=== PATIENT | female | born 1975 | race Hispanic/Latino ===

== ENCOUNTER 2016-12-21 22:30 | Emergency (ER) | payer SELFPAY ==
[2016-12-21] MEDS ORDERED: TORAdol 30 mg Injection IV ONE (22:52)
[2016-12-21] MEDS ORDERED: TORAdol 30 mg Injection ONE (22:57)
--- NOTE | 2016-12-21 22:57 | ERPHSYRPT ---
- History of Present Illness Time Seen by Provider: 12/21/16 22:54 Historian: patient Exam Limitations: no limitations Physician History: 41 y/o female comes to the ER with complaints of mid abdominal pain for the past 3 days. Pt describes the pain as sharp, constant, 6/10 and not relieved by tylenol or advil. Pt says she has been on her period for the past 10 days. Pt denies any fever, chills, nausea, vomiting, diarrhea, constipation or urinary symptoms. Timing/Duration: day(s) (3) Activities at Onset: none Quality: sharpness Abdominal Pain Onset Location: periumbilical Pain Radiation: no radiation Severity of Pain-Max: moderate Severity of Pain-Current: moderate Modifying Factors: Improves With: nothing Associated Symptoms: No fever/chills Previous symptoms: no prior history Allergies/Adverse Reactions: No Known Drug Allergies Allergy (Verified 12/21/16 22:57) Hx Tetanus, Diphtheria Vaccination/Date Given: No Hx Influenza Vaccination/Date Given: No Hx Pneumococcal Vaccination/Date Given: No - Review of Systems Constitutional: No Fever, No Chills Eyes: No Symptoms Ears, Nose, & Throat: No Symptoms Respiratory: No Cough, No Dyspnea Cardiac: No Chest Pain, No Edema, No Syncope Abdominal/Gastrointestinal: Abdominal Pain, No Nausea, No Vomiting, No Diarrhea , No Constipation, No Melena Genitourinary Symptoms: No Dysuria, No Frequency, No Hematuria Musculoskeletal: No Back Pain, No Neck Pain Skin: No Rash Neurological: No Dizziness, No Focal Weakness, No Sensory Changes Psychological: No Symptoms Endocrine: No Symptoms All Other Systems: Reviewed and Negative - Past Medical History Pertinent Past Medical History: No Neurological History: No Pertinent History ENT History: No Pertinent History Cardiac History: No Pertinent History Respiratory History: No Pertinent History Endocrine Medical History: No Pertinent History Musculoskeletal History: No Pertinent History GI Medical History: No Pertinent History History: No Pertinent History Psycho-Social History: No Pertinent History Female Reproductive Disorders: No Pertinent History - Past Surgical History Past Surgical History: No Neuro Surgical History: No Pertinent History Cardiac: No Pertinent History Respiratory: No Pertinent History Gastrointestinal: No Pertinent History Genitourinary: No Pertinent History Musculoskeletal: No Pertinent History Female Surgical History: No Pertinent History - Social History Smoking Status: Never smoker Exposure to second hand smoke: No Drug Use: none Patient Lives Alone: No - Nursing Vital Signs Nursing Vital Signs: Initial Vital Signs Temperature 97.8 F 12/21/16 22:44 Pulse Rate 75 12/21/16 22:44 Respiratory Rate 18 12/21/16 22:44 Blood Pressure 132/63 12/21/16 22:44 O2 Sat by Pulse Oximetry 99 12/21/16 22:44 Pain Scale Pain Intensity 4 - Physical Exam General Appearance: no apparent distress, alert Eye Exam: PERRL/EOMI, eyes nml inspection Ears, Nose, Throat Exam: normal ENT inspection, pharynx normal, moist mucous membranes Neck Exam: normal inspection, non-tender, supple, full range of motion Respiratory Exam: normal breath sounds, lungs clear, No respiratory distress Cardiovascular Exam: regular rate/rhythm, normal heart sounds Gastrointestinal/Abdomen Exam: soft, normal bowel sounds, tenderness, No distention, No mass, No guarding, No rebound Back Exam: normal inspection, normal range of motion, No CVA tenderness, No vertebral tenderness Extremity Exam: normal inspection, normal range of motion, pelvis stable Neurologic Exam: alert, oriented x 3, cooperative, normal mood/affect, nml cerebellar function, sensation nml, No motor deficits Skin Exam: normal color, warm, dry - Course Nursing assessment & vital signs reviewed: Yes Ordered Tests: Active Orders 24 hr Category Date Time Status IV Insertion STAT Care 12/21/16 22:52 Active NPO (ED) STAT Care 12/21/16 22:52 Active ABDOMEN AND PELVIS W CONTRAST [CT] Stat Exams 12/21/16 22:53 Taken AMYLASE Stat Lab 12/21/16 22:56 Completed CBC W DIFF Stat Lab 12/21/16 22:56 Completed CMP Stat Lab 12/21/16 22:56 Completed CULTURE,URINE Stat Lab 12/21/16 22:56 Received HCG QUALITATIVE,SERUM Stat Lab 12/21/16 22:56 Completed LIPASE Stat Lab 12/21/16 22:56 Completed UA W/ MICROSCOPIC Stat Lab 12/21/16 22:56 Completed Medication Summary Discontinued Medications Generic Name Dose Route Start Last Admin Trade Name Freq PRN Reason Stop Dose Admin Ketorolac Tromethamine 30 mg 12/21/16 22:52 12/21/16 23:01 Toradol 30 Mg Injection IV 12/21/16 22:53 30 mg STAT ONE Administration Ketorolac Tromethamine Confirm 12/21/16 22:57 Toradol 30 Mg Injection Administered 12/21/16 22:58 Dose 30 mg .ROUTE .STK-MED ONE Lab/Rad Data: Laboratory Result Diagrams 12/21/16 22:56 12/21/16 22:56 Laboratory Results 12/21/16 12/21/16 12/21/16 Range/Units 22:56 22:56 22:56 WBC (4.0-10.5) K/mm3 RBC (4.1-5.4) M/mm3 Hgb (12.0-16.0) gm/dl Hct (35-47) % MCV (78-100) fl MCH (26-32) pg MCHC (32-36) g/dl RDW (11.5-14.0) % Plt Count (150-450) K/mm3 MPV (6-9.5) fl Gran % (36.0-66.0) % Lymphocytes % (24.0-44.0) % Monocytes % (0.0-12.0) % Eosinophils % (0.00-5.0) % Basophils % (0.0-0.4) % Basophils # (0-0.4) Sodium 137 (136-145) mEq/L Potassium 3.6 (3.5-5.1) mEq/L Chloride 101 (98-107) mEq/L Carbon Dioxide 26.2 (21-32) mEq/L Anion Gap 13.3 (5-15) MEQ/L BUN 10 (9-20) mg/dL Creatinine 0.71 (0.55-1.30) mg/dl Estimated GFR > 60 ML/MIN Glucose 109 (70-110) MG/DL Calcium 8.7 (8.5-10.1) mg/dL Total Bilirubin 0.30 (0.2-1.0) mg/dL AST 22 (15-37) U/L ALT 19 (12-78) U/L Alkaline Phosphatase 79 (46-116) U/L Serum Total Protein 7.9 (6.4-8.2) gm/dL Albumin 3.6 (3.4-5.0) g/dL Amylase 91 (25-115) U/L Lipase 177 (73-393) U/L Serum , Qual NEGATIVE (Negative) Ur Collection Type CLEAN CATCH Urine Color RED (YELLOW) Urine Appearance CLOUDY (CLEAR) Urine pH 5.0 (5-6) Ur Specific [place] 1.020 (1.005-1.025) Urine Protein 100 (Negative) Urine Ketones NEGATIVE (NEGATIVE) Urine Blood 250 (0-5) Vick/ul Urine Nitrite NEGATIVE (NEGATIVE) Urine Bilirubin NEGATIVE (NEGATIVE) Urine Urobilinogen NORMAL (0-1) mg/dL Ur Leukocyte Esterase 2+ (NEGATIVE) Urine Microscopic RBC >100 (0-2) /HPF Urine Microscopic WBC 5-10 (0-5) /HPF Ur Epithelial Cells FEW (FEW) /HPF Urine Bacteria FEW (NEGATIVE) /HPF Urine Glucose NEGATIVE (NEGATIVE) mg/dL Specimen Received 12/21/16 2250 12/21/16 Range/Units 22:56 WBC 7.2 (4.0-10.5) K/mm3 RBC 4.04 L (4.1-5.4) M/mm3 Hgb 11.5 L (12.0-16.0) gm/dl Hct 34.8 L (35-47) % MCV 86.1 (78-100) fl MCH 28.4 (26-32) pg MCHC 33.0 (32-36) g/dl RDW 14.8 H (11.5-14.0) % Plt Count 256 (150-450) K/mm3 MPV 11.5 H (6-9.5) fl Gran % 56.6 (36.0-66.0) % Lymphocytes % 29.5 (24.0-44.0) % Monocytes % 7.8 (0.0-12.0) % Eosinophils % 5.7 H (0.00-5.0) % Basophils % 0.4 (0.0-0.4) % Basophils # 0.03 (0-0.4) Sodium (136-145) mEq/L Potassium (3.5-5.1) mEq/L Chloride (98-107) mEq/L Carbon Dioxide (21-32) mEq/L Anion Gap (5-15) MEQ/L BUN (9-20) mg/dL Creatinine (0.55-1.30) mg/dl Estimated GFR ML/MIN Glucose (70-110) MG/DL Calcium (8.5-10.1) mg/dL Total Bilirubin (0.2-1.0) mg/dL AST (15-37) U/L ALT (12-78) U/L Alkaline Phosphatase (46-116) U/L Serum Total Protein (6.4-8.2) gm/dL Albumin (3.4-5.0) g/dL Amylase (25-115) U/L Lipase (73-393) U/L Serum , Qual (Negative) Ur Collection Type Urine Color (YELLOW) Urine Appearance (CLEAR) Urine pH (5-6) Ur Specific [place] (1.005-1.025) Urine Protein (Negative) Urine Ketones (NEGATIVE) Urine Blood (0-5) Vick/ul Urine Nitrite (NEGATIVE) Urine Bilirubin (NEGATIVE) Urine Urobilinogen (0-1) mg/dL Ur Leukocyte Esterase (NEGATIVE) Urine Microscopic RBC (0-2) /HPF Urine Microscopic WBC (0-5) /HPF Ur Epithelial Cells (FEW) /HPF Urine Bacteria (NEGATIVE) /HPF Urine Glucose (NEGATIVE) mg/dL Specimen Received - Progress Progress: improved Progress Note: 12/22/16 00:44 Pt feels better after receiving toradol. The CT scan abd/pelvis shows enteritis but no appendicitis. The U/A shows a UTI and will be given a script for cipro. Pt will also be given a script for toradol for pain. - Departure Time of Disposition: 00:45 Departure Disposition: Home Clinical Impression: Enteritis UTI (urinary tract infection) Qualifiers: Urinary tract infection type: site unspecified Hematuria presence: with hematuria Qualified Code(s): N39.0 - Urinary tract infection, site not specified ; R31.9 - Hematuria, unspecified Condition: Stable Critical Care Time: No Referrals: DOCTOR,NO FAMILY [Primary Care Provider] - Instructions: Abdominal Pain-Adult, Urinary Tract Infection (UTI) Additional Instructions: Follow up with your PCP if you should have no improvement. Complete the antibiotics until completion. Prescriptions: Ciprofloxacin HCl [Cipro] 500 mg PO BID #13 tablet Ketorolac Tromethamine [Toradol] 10 mg PO QID PRN #20 tablet PRN Reason: Pain
[2016-12-21 23:00] LABS: BASOPHIL % 0.4 % (0.0-0.4); Eosinophil % 5.7 % (0.00-5.0); Granulocytes % 56.6 % (36.0-66.0); Lymphocytes % 29.5 % (24.0-44.0); Mean Cell Volume 86.1 fl (78-100); Mean Platelet Volume 11.5 fl (6-9.5); Monocytes % 7.8 % (0.0-12.0); Platelet Count 256 K/mm3 (150-450); Red Blood Count 4.04 M/mm3 (4.1-5.4); Red Cell Distribution Width 14.8 % (11.5-14.0); White Blood Count 7.2 K/mm3 (4.0-10.5)
[2016-12-21 23:03] LABS: Mean Corpuscular Hemoglobin 28.4 pg (26-32)
[2016-12-21 23:16] LABS: Bilirubin NEGATIVE (NEGATIVE); Blood 250 Ery/ul (0-5); COMPLETE URINE MICROSCOPIC? YES; Collection Type CLEAN CATCH; Glucose NEGATIVE (NEGATIVE); Leukocyte Esterase 2+ (NEGATIVE)
[2016-12-21 23:17] LABS: ADD URINE CULTURE? YES (NO); Bacteria FEW /HPF (NEGATIVE); Epithelial Cells FEW /HPF (FEW)
[2016-12-21 23:23] LABS: ALBUMIN 3.6 g/dL (3.4-5.0); ALKALINE PHOSPHATASE 79 U/L (46-116); ANION GAP 13.3 MEQ/L (5-15); BLOOD UREA NITROGEN 10 mg/dL (9-20); CHLORIDE 101 mEq/L (98-107); Carbon Dioxide 26.2 mEq/L (21-32); Glucose 109 MG/DL (70-110); LIPASE 177 U/L (73-393); Potassium 3.6 mEq/L (3.5-5.1); SGOT/AST 22 U/L (15-37); SGPT/ALT 19 U/L (12-78); SODIUM 137 mEq/L (136-145); Total Protein 7.9 gm/dL (6.4-8.2)
[2016-12-22] MEDS ORDERED: Levofloxacin 250MG Tablet PO ONE (00:42)
[2016-12-22] MEDS ORDERED: Levofloxacin 250MG Tablet ONE (00:48)
[2016-12-22 01:05] VITALS: BP 110/56; PULSE 68; O2SAT 97
--- NOTE | 2016-12-22 08:44 | XRAY ---
Indication: Mid abdominal pain for 3 days. Multiple contiguous axial images obtained through the abdomen and pelvis using 80 cc Isovue 370 contrast only. Comparison: None Lung bases demonstrates minimal bibasilar dependent atelectasis. No infiltrate or effusion. Heart is not enlarged. Stomach is distended with food. Noncontrasted bowel loops appear nonobstructed. There is mild diffuse scattered colonic fecal debris throughout. Normal appendix. No free fluid/air. IUD in situ. Remaining liver, gallbladder, pancreas, spleen, adrenal glands, kidneys, ureters, bladder, uterus, and aorta appear unremarkable. No pathologic retroperitoneal lymphadenopathy. Osseous structures intact. Tiny fatty umbilical hernia. Impression: 1. Mild fecal stasis without obstruction and tiny fatty umbilical hernia. 2. No acute intra-abdominal/pelvic abnormalities. Comment: Preliminary interpretation was made by [facility]. No critical discrepancy. CT DI 14.75
== END 2016-12-22 01:22 | disposition home or self-care (01) ==
LOC: ED 22:30
DX: N39.0 Urinary tract infection, site not specified (principal); R31.9 Hematuria, unspecified; K52.9 Noninfective gastroenteritis and colitis, unspecified; R10.9 Unspecified abdominal pain
CPT/HCPCS: 36000; 36415; 74177; 80053; 81000; 82150; 83690; 84703; 85025; 87086; 96372; 96374; 99284; J1885; A9270-GY